=== PATIENT | male | born 1980 | race Caucasian/White ===

== ENCOUNTER 2018-03-22 17:27 | Observation (INO) ==
[2018-03-22] MEDS ORDERED: 0.9 % Sodium Chloride 1,000 ML IVC ONE ×2 (18:13→18:26)
--- NOTE | 2018-03-22 18:20 | Emergency Department Note ---
Disposition Clinical Impression: Diabetes Qualifiers: Diabetes mellitus type: type 2 Diabetes mellitus prison insulin use: without prison use Diabetes mellitus complication status: with unspecified complications Qualified Code(s): E11.8 - Type 2 diabetes mellitus with unspecified complications Disposition: Admitted As Inpatient Referrals: Doreen Vivar CNP [Primary Care Provider] - Forms: ED Satisfaction Letter General Adult HPI - General Chief complaint: ED Recheck/Abnormal Lab/Rx Stated complaint: High Glucose Time Seen by Provider: 03/22/18 17:32 - History of Present Illness HPI Narrative: This 38 years old male patient is here for generalized fatigue ,polyphagia, thirsty ,polyuria for last 1 1/2 month and symptoms are getting worse recently. He states that he has had blood sugar test done almost 1 1/2 years back and he doesn't know the exact value , but it was borderline . He admits mild chest discomfort .He denies any h/o chest pain , nausea-vomiting , palpitation, dizziness ,fever, SOB, syncope , seizure like activities. Onset (ago): day(s) Pain Scale: 0 - Related Data Previous Rx's Medication Instructions Recorded Ibuprofen [Motrin] 600 mg PO Q6HR PRN #20 tablet 11/11/15 Allergies Allergy/AdvReac Type Severity Reaction Status Date / Time cephalexin [From Keflex] Allergy Hives Verified 11/11/15 22:50 Penicillins Allergy Hives Verified 10/16/15 10:25 All systems ED: reviewed and negative except as stated. Review of Systems: As Per HPI Constitutional: Reports: as per HPI. Denies: fever, chills, weakness Eyes: Reports: as per HPI. Denies: eye pain ENT ED: Reports: as per HPI. Denies: ear pain, throat pain Cardiovascular: Reports: as per HPI. Denies: chest pain, palpitations Respiratory: Reports: as per HPI. Denies: cough, dyspnea, wheezes Gastrointestinal: Reports: as per HPI. Denies: abdominal pain, nausea, vomiting , diarrhea Genitourinary: Reports: as per HPI, frequency. Denies: urgency, dysuria, hematuria Musculoskeletal: Reports: as per HPI. Denies: back pain, neck pain Integumentary: Reports: as per HPI. Denies: rash, abrasion Neurological: Reports: as per HPI. Denies: headache, weakness, numbness Psychiatric: Reports: as per HPI. Denies: anxiety, depression, suicidal thoughts Endocrine: Reports: as per HPI. Denies: heat or cold intolerance Hematological/Lymphatic: Reports: as per HPI. Denies: easy bleeding Allergic/Immunologic: Reports: as per HPI. Denies: facial swelling Past Medical History - Past Medical History Medical history: Reports: hypertension Psychiatric history: Reports: depression - Social History Smoking Status: Former smoker Smokeless Tobacco Status: Yes Alcohol use: Reports: occasionally Drug use: Reports: none Physical Exam - General General appearance: alert, in no apparent distress - Head Head exam: atraumatic, normocephalic, normal inspection - Eye Eye exam: Present: PERRL, EOMI - ENT ENT exam: mucous membranes dry - Neck Neck exam: Present: full ROM - Chest Chest inspection: Present: symmetric chest wall rise. Absent: tenderness, rash - Respiratory Respiratory exam: Absent: respiratory distress, wheezes - Cardiovascular Cardiovascular exam: Present: regular rate, normal rhythm, +S1, +S2. Absent: bradycardia, tachycardia - Abdominal Exam Abdominal exam: Present: soft, Non-Tender, normal bowel sounds. Absent: tenderness, distention, guarding, rebound, rigidity, obturator sign, Naik's sign, Rovsing's sign - Extremities Exam Extremities exam: Present: normal inspection, normal capillary refill. Absent: pedal edema, joint swelling, calf tenderness - Back Exam Back exam: Present: muscle spasm. Absent: CVA tenderness (R), CVA tenderness (L ) - Neurological Exam Neurological exam: Present: alert, oriented X3, CN II-XII intact, normal gait - Psychiatric Psychiatric exam: Present: normal affect, normal mood. Absent: depressed, agitated - Skin Skin exam: Present: warm, normal color Course Course Narrative: The patient has polyuria, polyphagia, fatigability, so we have to r/o Diabetes. We ordered Urinalysis, CMP, EKG etc. His chest Xray is normal , EKG is normal /Normal sinus rhythm Urine analysis shows : Severe Glycosuria , no evidence of infection. His liver enzyme are slightly elevated, Blood sugar : 529 and Na + level: 131 We planned to admit him for management of diabetes and additional work up. Vital Signs Temperature 97.7 F 03/22/18 17:29 Pulse Rate 97 03/22/18 17:29 Respiratory Rate 18 03/22/18 17:29 Blood Pressure 145/93 03/22/18 17:29 O2 Sat by Pulse Oximetry 96 03/22/18 17:29 Temperature 97.7 F 03/22/18 17:29 Pulse Rate 96 03/22/18 17:52 Respiratory Rate 20 03/22/18 17:52 Blood Pressure 144/101 03/22/18 17:52 O2 Sat by Pulse Oximetry 96 03/22/18 17:52 Oxygen Delivery Oxygen Delivery Room Air Medical Decision Making - Lab Data Result diagrams: 03/22/18 18:23 03/22/18 18:23 Lab Results 03/22/18 03/22/18 03/22/18 Range/Units 18:23 18:23 18:23 WBC 11.8 H (4.3-11.1) K/mcL RBC 5.36 (4.19-5.50) M/mcL Hgb 15.7 (12.9-16.9) g/dL Hct 43.5 (37.5-50.1) % MCV 81.2 L (83.0-100.0) fL MCH 29.3 (28.0-33.3) pg MCHC 36.1 H (31.6-35.5) g/dL RDW 11.9 (11.5-14.5) % Plt Count 213 (140-400) K/mcL MPV 11.1 (9.4-12.4) fL Immature Gran % 1.0 (0-4) % Seg Neutrophils % 56.2 % Lymphocytes % 34.8 % Monocytes % 5.3 % Eosinophils % 1.9 % Basophils % 0.8 % Neutrophils # 6.6 (1.6-8.9) K/mcL Lymphocytes # 4.1 (0.6-4.6) K/mcL Monocytes # 0.6 (0.0-1.3) K/mcL Eosinophils # 0.2 (0.0-0.6) K/mcL Basophils # 0.1 (0.0-0.2) K/mcL VBG pH (7.32-7.42) pH Units VBG pCO2 (41-51) mmHg VBG pO2 (25-50) mmHg VBG HCO3 (21-27) mEq/L Sodium 131 L (136-145) mEq/L Potassium 4.0 (3.5-5.1) mEq/L Chloride 96 L (98-107) mEq/L Carbon Dioxide 19 L (23-29) mEq/L BUN 16 (6-20) mg/dL Creatinine 1.07 (0.70-1.30) mg/dL Est GFR ( Amer) > 60 (> 60) Est GFR (Non-Af Amer) > 60 (> 60) BUN/Creatinine Ratio 15 (6-26) Glucose 526 H* (70-105) mg/dL Calculated Osmolality 297 (280-300) Calcium 10.0 (8.6-10.3) mg/dL Total Bilirubin 0.5 (0.3-1.0) mg/dL AST 45 H (13-39) Units/L ALT 100 H (7-52) Units/L Alkaline Phosphatase 110 H (34-104) Units/L Troponin I (< 0.04) ng/mL Serum Total Protein 7.4 (6.4-8.9) g/dL Albumin 4.8 (3.5-5.7) g/dL Globulin 2.6 (2.4-3.5) g/dL Albumin/Globulin Ratio 1.8 (1.1-2.2) Beta-Hydroxybutyric Acd 0.26 (0.02-0.27) mmol/L Urine Color (Yellow) Urine Clarity (Clear) Urine pH (5.0-8.0) pH Units Ur Specific [place] (1.010-1.025) Urine Protein (Neg-Trace) mg/dL Urine Glucose (UA) (Normal) mg/dL Urine Ketones (Negative) mg/dL Urine Blood (Negative) Urine Nitrite (Negative) Urine Bilirubin (Negative) Urine Urobilinogen (Normal) mg/dL Ur Leukocyte Esterase (Negative) Ur Culture Indicated? (NO) 03/22/18 03/22/18 03/22/18 Range/Units 18:55 19:31 19:41 WBC (4.3-11.1) K/mcL RBC (4.19-5.50) M/mcL Hgb (12.9-16.9) g/dL Hct (37.5-50.1) % MCV (83.0-100.0) fL MCH (28.0-33.3) pg MCHC (31.6-35.5) g/dL RDW (11.5-14.5) % Plt Count (140-400) K/mcL MPV (9.4-12.4) fL Immature Gran % (0-4) % Seg Neutrophils % % Lymphocytes % % Monocytes % % Eosinophils % % Basophils % % Neutrophils # (1.6-8.9) K/mcL Lymphocytes # (0.6-4.6) K/mcL Monocytes # (0.0-1.3) K/mcL Eosinophils # (0.0-0.6) K/mcL Basophils # (0.0-0.2) K/mcL VBG pH 7.40 (7.32-7.42) pH Units VBG pCO2 36 L (41-51) mmHg VBG pO2 76 H (25-50) mmHg VBG HCO3 22 (21-27) mEq/L Sodium (136-145) mEq/L Potassium (3.5-5.1) mEq/L Chloride (98-107) mEq/L Carbon Dioxide (23-29) mEq/L BUN (6-20) mg/dL Creatinine (0.70-1.30) mg/dL Est GFR ( Amer) (> 60) Est GFR (Non-Af Amer) (> 60) BUN/Creatinine Ratio (6-26) Glucose (70-105) mg/dL Calculated Osmolality (280-300) Calcium (8.6-10.3) mg/dL Total Bilirubin (0.3-1.0) mg/dL AST (13-39) Units/L ALT (7-52) Units/L Alkaline Phosphatase (34-104) Units/L Troponin I < 0.03 (< 0.04) ng/mL Serum Total Protein (6.4-8.9) g/dL Albumin (3.5-5.7) g/dL Globulin (2.4-3.5) g/dL Albumin/Globulin Ratio (1.1-2.2) Beta-Hydroxybutyric Acd (0.02-0.27) mmol/L Urine Color Yellow (Yellow) Urine Clarity Clear (Clear) Urine pH 6.0 (5.0-8.0) pH Units Ur Specific [place] > 1.030 H (1.010-1.025) Urine Protein Negative (Neg-Trace) mg/dL Urine Glucose (UA) >=1000 H (Normal) mg/dL Urine Ketones Negative (Negative) mg/dL Urine Blood Negative (Negative) Urine Nitrite Negative (Negative) Urine Bilirubin Negative (Negative) Urine Urobilinogen Normal (Normal) mg/dL Ur Leukocyte Esterase Negative (Negative) Ur Culture Indicated? NO (NO)
[2018-03-22] MEDS ORDERED: Isovue-370 500 ML INFUS..BTL IV ONE ×2 (18:24→21:05)
[2018-03-22 18:34] LABS: Basophils # 0.1 K/mcL (0.0-0.2); Basophils % 0.8 %; Eosinophils # 0.2 K/mcL (0.0-0.6); Eosinophils % 1.9 %; Hematocrit 43.5 % (37.5-50.1); Hemoglobin 15.7 g/dL (12.9-16.9); Lymphocytes # 4.1 K/mcL (0.6-4.6); Lymphocytes % 34.8 %; Mean Corpuscular HGB Conc 36.1 g/dL (31.6-35.5); Mean Corpuscular Hemoglobin 29.3 pg (28.0-33.3); Mean Corpuscular Volume 81.2 fL (83.0-100.0); Mean Platelet Volume 11.1 fL (9.4-12.4); Monocytes # 0.6 K/mcL (0.0-1.3); Monocytes % 5.3 %; Neutrophils # 6.6 K/mcL (1.6-8.9); Platelet Count 213 K/mcL (140-400); Red Blood Count 5.36 M/mcL (4.19-5.50); Red Cell Distribution Width 11.9 % (11.5-14.5); Segmented Neutrophils % 56.2 %
--- NOTE | 2018-03-22 18:47 | Emergency Department Note ---
Disposition Clinical Impression: Diabetes Qualifiers: Diabetes mellitus type: type 2 Diabetes mellitus alf insulin use: without alf use Diabetes mellitus complication status: with unspecified complications Qualified Code(s): E11.8 - Type 2 diabetes mellitus with unspecified complications Disposition: Admitted As Inpatient Referrals: Doreen Vivar GALLERY OR MUSEUM ATTENDANT [Primary Care Provider] - Forms: ED Satisfaction Letter General Adult HPI - General Chief complaint: ED Recheck/Abnormal Lab/Rx Stated complaint: High Glucose Time Seen by Provider: 03/22/18 17:32 - History of Present Illness Pain Scale: 0 - Related Data Previous Rx's Medication Instructions Recorded Ibuprofen [Motrin] 600 mg PO Q6HR PRN #20 tablet 11/11/15 Allergies Allergy/AdvReac Type Severity Reaction Status Date / Time cephalexin [From Keflex] Allergy Hives Verified 11/11/15 22:50 Penicillins Allergy Hives Verified 10/16/15 10:25 Constitutional: Reports: as per HPI. Denies: fever, chills, weakness Eyes: Reports: as per HPI. Denies: eye pain ENT ED: Reports: as per HPI. Denies: ear pain, throat pain Cardiovascular: Reports: as per HPI. Denies: chest pain, palpitations Respiratory: Reports: as per HPI. Denies: cough, dyspnea, wheezes Gastrointestinal: Reports: as per HPI. Denies: abdominal pain, nausea, vomiting , diarrhea Genitourinary: Reports: as per HPI, frequency. Denies: urgency, dysuria, hematuria Musculoskeletal: Reports: as per HPI. Denies: back pain, neck pain Integumentary: Reports: as per HPI. Denies: rash, abrasion Neurological: Reports: as per HPI. Denies: headache, weakness, numbness Psychiatric: Reports: as per HPI. Denies: anxiety, depression, suicidal thoughts Endocrine: Reports: as per HPI. Denies: heat or cold intolerance Hematological/Lymphatic: Reports: as per HPI. Denies: easy bleeding Allergic/Immunologic: Reports: as per HPI. Denies: facial swelling Past Medical History - Past Medical History Medical history: Reports: hypertension Psychiatric history: Reports: depression - Social History Smoking Status: Former smoker Smokeless Tobacco Status: Yes Alcohol use: Reports: occasionally Drug use: Reports: none Physical Exam - General General appearance: alert, in no apparent distress Course Vital Signs Temperature 97.7 F 03/22/18 17:29 Pulse Rate 97 03/22/18 17:29 Respiratory Rate 18 03/22/18 17:29 Blood Pressure 145/93 03/22/18 17:29 O2 Sat by Pulse Oximetry 96 03/22/18 17:29 Temperature 97.7 F 03/22/18 17:29 Pulse Rate 96 03/22/18 17:52 Respiratory Rate 20 03/22/18 17:52 Blood Pressure 144/101 03/22/18 17:52 O2 Sat by Pulse Oximetry 96 03/22/18 17:52 Oxygen Delivery Oxygen Delivery Room Air Medical Decision Making - Lab Data Result diagrams: 03/22/18 18:23 Lab Results 03/22/18 Range/Units 18:23 WBC 11.8 H (4.3-11.1) K/mcL RBC 5.36 (4.19-5.50) M/mcL Hgb 15.7 (12.9-16.9) g/dL Hct 43.5 (37.5-50.1) % MCV 81.2 L (83.0-100.0) fL MCH 29.3 (28.0-33.3) pg MCHC 36.1 H (31.6-35.5) g/dL RDW 11.9 (11.5-14.5) % Plt Count 213 (140-400) K/mcL MPV 11.1 (9.4-12.4) fL Immature Gran % 1.0 (0-4) % Seg Neutrophils % 56.2 % Lymphocytes % 34.8 % Monocytes % 5.3 % Eosinophils % 1.9 % Basophils % 0.8 % Neutrophils # 6.6 (1.6-8.9) K/mcL Lymphocytes # 4.1 (0.6-4.6) K/mcL Monocytes # 0.6 (0.0-1.3) K/mcL Eosinophils # 0.2 (0.0-0.6) K/mcL Basophils # 0.1 (0.0-0.2) K/mcL Attestation Statement - Attestation Attestation: I examined this patient and my medical decision-making was reviewed with the Resident Physician. I agree with the documented findings, disposition and treatment plan as described except to the extent set forth below. 38 year old male presents to the ED with complaints of high blood glucose. Patinet states that there is a mild history of dibetes with his great grandmother. Elin states taht he was at the PCP office today because he has been feeing dry mouth and increased uriantion and about one week ago developed bluriness in his vision witohut eye pain on movment or fevers, or headache. Giovani had his blood glkucose checked and the meter read it as too high. Patient likely is a new onset diabetic and was most recently told that his A1c is 11. We will do DKA/HHS workup and then rachel admit to medicine for new onset diabetes
[2018-03-22 19:27] LABS: Bilirubin,Urine Negative (Negative); Blood,Urine Negative (Negative); Clarity,Urine Clear (Clear); Color,Urine Yellow (Yellow); Glucose,Urine (UA) >=1000 mg/dL (Normal); Ketones,Urine Negative (Negative); Leukocyte Esterase,Urine Negative (Negative); Nitrite,Urine Negative (Negative); Protein,Urine Negative (Neg-Trace); Specific Gravity,Urine > 1.030 (1.010-1.025); Urobilinogen,Urine Normal (Normal)
[2018-03-22 19:43] LABS: VBG HCO3 22 mEq/L (21-27); VBG PCO2 36 mmHg (41-51); VBG PO2 76 mmHg (25-50)
[2018-03-22 21:01] LABS: Alanine Aminotransferase 100 Units/L (7-52); Albumin 4.8 g/dL (3.5-5.7); Albumin/Globulin Ratio 1.8 (1.1-2.2); Alkaline Phosphatase 110 Units/L (34-104); Aspartate Amino Transferase 45 Units/L (13-39); BUN/Creatinine Ratio 15 (6-26); Bilirubin,Total 0.5 mg/dL (0.3-1.0); Blood Urea Nitrogen 16 mg/dL (6-20); Carbon Dioxide 19 mEq/L (23-29); Chloride 96 mEq/L (98-107); Globulin 2.6 g/dL (2.4-3.5); Glucose 526 mg/dL (70-105); Osmolality,Calculated 297 (280-300); Sodium 131 mEq/L (136-145); Total Protein 7.4 g/dL (6.4-8.9); eGFR For Non-African Americans > 60 (> 60)
[2018-03-22] MEDS ORDERED: Insulin Regular, Human 100 UNIT/ML SQ ONE (21:06)
[2018-03-22 21:52] LABS: Hepatitis B Surface Antigen Nonreactive (Nonreactive)
[2018-03-23] MEDS ORDERED: Naloxone 0.4 MG/ML INJ IVP PRN (00:55)
--- NOTE | 2018-03-23 00:55 | Internal Med History&Physical ---
Date of Encounter: 03/23/18 Time of Encounter: 01:45 Internal Medicine - H&P: HPI Chief complaint: Visual blurring Admitted From: Emergency Dept Plans for Post Hospital Care: Home History of present illness: Mr. Grubbs is a 38 year old male with history of hypertension, migraine headaches and anxiety presents to the emergency department with complaint of blurred vision of 1 week duration. He says that this happened suddenly while at work. Visual blurriness is described as near vision only, saying that he cannot see things that are far away. This is primarily affected his ability to drive, and see things that are at a distance. This blurred vision is also associated with increased thirst and urinary frequency over the past months duration. He denies any pain or headache associated with this, and he has not had any trouble with eye movements. He has not taken anything to make this any better or worse. He does have a history of migraine headaches, however he says that this is nothing like this. He initially saw his primary care about this, and they checked his blood glucose at the office at which time he registered a reading of 2 high to determine 3 different times. He then checked a hemoglobin A1c at the office which was apparently 11.3. When this was discovered, he was told to come to the hospital. Significantly, the patient does have a history of hypertension and migraine headaches. For this, he takes propanolol which she says has a benefit of treating both his hypertension and his migraine headaches. He has a family history of diabetes and his great-grandmother, however no other significant family history to his knowledge. He is , lives with his . He denies any smoking history, does not drink alcohol and has no other drug use. He does admit to poor diet and drinks a significant amount of sweetened tea. In the emergency department he had labs which demonstrated mildly depressed white carbonate at 19 and significantly elevated glucose at 526. His head CT was negative for any intracranial process. An eye exam did not demonstrate any abnormality. The patient was given 6 units of subcutaneous insulin and admitted for workup of acute newly diagnosed diabetes mellitus. Past Med Surg Social Fam HX - Past Medical History Medical history: hypertension Psychiatric history: depression - Past Surgical History Additional surgical history: grace procedure - Social History Smoking Status: Former smoker Smokeless Tobacco Status: Yes Alcohol use: occasionally Drug use: none Internal Medicine - H&P: Meds Ibuprofen [Motrin] 600 mg PO Q6HR PRN #20 tablet 11/11/15 [Rx] Amitriptyline [Elavil] 25 mg PO DAILY 03/23/18 [History] Esomeprazole Magnesium [Nexium] 40 mg PO DAILY 03/23/18 [History] Propranolol [Inderal] 40 mg PO BID 03/23/18 [History] Sertraline [Zoloft] 200 mg PO DAILY 03/23/18 [History] Temazepam [Restoril] 7.5 mg PO HS 03/23/18 [History] 3 Allergy/AdvReac Type Severity Reaction Status Date / Time cephalexin [From Keflex] Allergy Hives Verified 11/11/15 22:50 Penicillins Allergy Hives Verified 10/16/15 10:25 All Systems PM: A 10-system review of systems was performed and is negative for pertinent findings except as documented above in the HPI. Review of systems: Constitutional: Denies fevers, chills, weight loss, generalized fatigue Head/Neck: Denies JJ, neck stiffness EENT: Denies rhinorrhea, congestion, sore throat CVS: Denies chest pain, palpitations, STEIN, orthopnea, edema, PND Pulm: Denies SOB, cough, sputum, hemoptysis, wheezing GI: Denies abdominal pain, nausea, vomiting, diarrhea, constipation, melena, hematemasis : Denies dysuria, increased frequency, urgency, hematuria Endocrine: Admits to polydipsia and polyuria as well as polyphagia Heme: Denies ease of bleeding or bruising MSK: Denies joint pain, limited ROM Skin: Denies rashes, ulcers, color changes Neuro: Denies JJ, paresthesias, focal deficits, ataxia. Admits to visual changes over the past week with bilateral visual blurriness - Constitutional Vitals: Temp Pulse Resp BP Pulse Ox 97.7 F 96 20 148/87 96 03/22/18 23:17 03/22/18 23:17 03/22/18 23:17 03/22/18 23:17 03/22/18 23:17 Exam: Gen: Vitals noted. No acute distress. HEENT: Normocephalic, atraumatic Neck: Supple. No adenopathy. Cardiac: RRR, no murmur, +S1/S2 Pulmonary: CTA bilaterally, no wheezes, rales or rhonchi, equal chest expansion Abdomen: soft, nontender, no guarding Back: Nontender throughout. MSK: ROM intact, no joint swelling noted Extremities: no BLE edema, nontender calf, no cyanosis or clubbing Neuro: moves all extremities, no focal deficits. A&Ox3 Psych: Appropriate mood and behavior Internal Med - H&P Results - Labs CBC & Chem 7: 03/23/18 01:20 03/23/18 01:20 - Assessment and plan (1) Diabetes Current Visit: Yes Status: Acute Assessment and plan: Newly diagnosed diabetes mellitus type 2 Patient is symptomatic, polydipsia, polyuria, visual disturbance This is all likely secondary to acute hyperglycemia, blood glucose 526 on arrival. A1c reportedly 11.3 at primary care On presentation, patient has very minimal electrolyte disturbances with Bicarb 19 CT head negative for intracranial process at this time Received 6U Lispro in the ED, 2L NS which dropped BG to 125 We will start the patient on ACHS Accuchecks and Low dose SSI Check HgA1C, Repeat BMP and Lipids Qualifiers: Diabetes mellitus type: type 2 Diabetes mellitus fci insulin use: without family and marriage counsellor use Diabetes mellitus complication status: with ophthalmic complications Diabetes mellitus complication detail: with other ophthalmic complication Qualified Code(s): E11.39 - Type 2 diabetes mellitus with other diabetic ophthalmic complication (2) Visual disturbance Current Visit: Yes Status: Acute Assessment and plan: B/L visual disturbance, suspected secondary to Acute hyperglycemia in new DM2 Head CT is Negative, neuro exam is otherwise non-focal We will treat DM, monitor neuro status (3) Hypertension Current Visit: Yes Status: Chronic Assessment and plan: Hypertension, in moderate control on home meds We will continue propanolol Start losartan 25mg for BP and renal protection, titrate up Qualifiers: Hypertension type: essential hypertension Qualified Code(s): I10 - Essential (primary) hypertension (4) History of migraine headaches Current Visit: Yes Status: Acute Assessment and plan: Continue propanolol (5) Hyperlipidemia Current Visit: Yes Status: Acute Assessment and plan: Patient will be treated with SQ Insulin, lifestyle changes recommended Qualifiers: Hyperlipidemia type: mixed hyperlipidemia Qualified Code(s): E78.2 - Mixed hyperlipidemia (6) Transaminitis Current Visit: Yes Status: Acute Assessment and plan: Hepatic steatosis noted on CTA of the abdomen/pelvis (7) DVT prophylaxis Current Visit: Yes Status: Acute Assessment and plan: SQ Heparin - Time Spent With Patient Total time spent is greater than 50% in coordination of care (as documented) at patient's floor/unit and/or counseling patient:
[2018-03-23] MEDS ORDERED: Dextrose Gel 15 GM/37.5 ML TUBE PO PRN ×2 (00:57)
[2018-03-23] MEDS ORDERED: D5% in Water 1,000 ML IVC PRN (00:57)
[2018-03-23] MEDS ORDERED: *HR* Dextrose 50 % in Water (Syg) 50 ML SYRINGE IVP PRN (00:57)
[2018-03-23] MEDS ORDERED: Ringers Solution, Lactated 1,000 ML IVC SCH (01:00)
[2018-03-23 01:35] LABS: Basophils # 0.1 K/mcL (0.0-0.2); Basophils % 0.9 %; Eosinophils # 0.4 K/mcL (0.0-0.6); Eosinophils % 3.4 %; Hematocrit 39.8 % (37.5-50.1); Hemoglobin 14.3 g/dL (12.9-16.9); Immature Granulocytes % 1.3 % (0-4); Lymphocytes # 4.6 K/mcL (0.6-4.6); Lymphocytes % 42.9 %; Mean Corpuscular HGB Conc 35.9 g/dL (31.6-35.5); Mean Corpuscular Hemoglobin 29.4 pg (28.0-33.3); Mean Corpuscular Volume 81.7 fL (83.0-100.0); Mean Platelet Volume 10.6 fL (9.4-12.4); Monocytes # 0.6 K/mcL (0.0-1.3); Monocytes % 5.8 %; Neutrophils # 4.9 K/mcL (1.6-8.9); Platelet Count 186 K/mcL (140-400); Red Blood Count 4.87 M/mcL (4.19-5.50); Red Cell Distribution Width 11.9 % (11.5-14.5); Segmented Neutrophils % 45.7 %
[2018-03-23 01:53] LABS: Hepatitis A Antibody IgM Nonreactive (Nonreactive); Hepatitis B Core IgM Nonreactive (Nonreactive); Hepatitis C Virus Antibody Nonreactive (Nonreactive)
[2018-03-23 02:04] LABS: Albumin 4.2 g/dL (3.5-5.7); Albumin/Globulin Ratio 1.8 (1.1-2.2); Bilirubin,Direct 0.1 mg/dL (0.0-0.2); Bilirubin,Indirect 0.4 mg/dL (0.0-1.2); Bilirubin,Total 0.5 mg/dL (0.3-1.0); Globulin 2.3 g/dL (2.4-3.5); Total Protein 6.5 g/dL (6.4-8.9)
[2018-03-23 02:05] LABS: BUN/Creatinine Ratio 15 (6-26); Blood Urea Nitrogen 14 mg/dL (6-20); Calcium 9.1 mg/dL (8.6-10.3); Carbon Dioxide 24 mEq/L (23-29); Chloride 102 mEq/L (98-107); Chol/HDL Ratio 11.3 (0-4.9); Cholesterol 260 mg/dL (< 200); Glucose 171 mg/dL (70-105); HDL Cholesterol 23 mg/dL (40-59); Magnesium 1.9 mg/dL (1.6-2.6); Osmolality,Calculated 291 (280-300); Phosphorous 4.1 mg/dL (2.7-4.5); Potassium 3.3 mEq/L (3.5-5.1); Sodium 138 mEq/L (136-145); Triglycerides 917 mg/dL (< 150); eGFR For Non-African Americans > 60 (> 60)
[2018-03-23] MEDS ORDERED: Acetaminophen 325 MG TABLET PO ONE (02:49)
[2018-03-23] MEDS ORDERED: Ibuprofen 600 MG TABLET PO PRN (03:17)
[2018-03-23] MEDS: *HR* Heparin 5,000 UNIT/ML VIAL SQ SCH ×2 (05:15→14:11)
[2018-03-23] MEDS: Insulin LISPRO 300 UNITS/3 ML VIAL SQ SCH ×2 (08:10→12:07)
[2018-03-23 08:23] LABS: Estimated Average Glucose 275 mg/dl; Hemoglobin A1C 11.2 %
--- NOTE | 2018-03-23 13:05 | Discharge Summary ---
- NOTES TO OUTPATIENT PROVIDER Notes to Outpatient Provider: - Repeat LFT and lipid panel. Unsure if truly hypercholesterolemia. - Will need formal diabetic education. Not available in hospital. - Home with one week Lipitor and Niacin. Re-evaluate if needs these medications long-term based on LFT and lipid profile. 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 Diabetes mellitus complication status: with ophthalmic complications Diabetes mellitus complication detail: with other ophthalmic complication Qualified Code(s): 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 Grubbs is a 38 year old male with history of hypertension, migraine headaches and anxiety presents to the emergency department with complaint of blurred vision of 1 week duration. He says that this happened suddenly while at work. Visual blurriness is described as near vision only, saying that he cannot see things that are far away. This is primarily affected his ability to drive, and see things that are at a distance. This blurred vision is also associated with increased thirst and urinary frequency over the past months duration. He denies any pain or headache associated with this, and he has not had any trouble with eye movements. He has not taken anything to make this any better or worse. He does have a history of migraine headaches, however he says that this is nothing like this. He initially saw his primary care about this, and they checked his blood glucose at the office at which time he registered a reading of 2 high to determine 3 different times. He then checked a hemoglobin A1c at the office which was apparently 11.3. When this was discovered, he was told to come to the hospital. Significantly, the patient does have a history of hypertension and migraine headaches. For this, he takes propanolol which she says has a benefit of treating both his hypertension and his migraine headaches. He has a family history of diabetes and his great-grandmother, however no other significant family history to his knowledge. He is , lives with his . He denies any smoking history, does not drink alcohol and has no other drug use. He does admit to poor diet and drinks a significant amount of sweetened tea. In the emergency department he had labs which demonstrated mildly depressed white carbonate at 19 and significantly elevated glucose at 526. His head CT was negative for any intracranial process. An eye exam did not demonstrate any abnormality. The patient was given 6 units of subcutaneous insulin and admitted for workup of acute newly diagnosed diabetes mellitus. He was placed in hospital for further treatment and observation. He was given 6 units of subcutaneous insulin and blood glucose did improve. He had LFTs checked that showed AST 45, ALT 100, and ALP 110. Viral hepatitis screen was negative. Repeat LFTs showed AST 38, ALT 85, ALP 95. Triglycerides were elevated at 917, LDL was too numerous for lab. A direct LDL level returned however at 91. This may have been lab error from hyperglycemia. Patient stable from hyperglycemia standpoint. He will be discharged with Insulin and diabetic supplies. He will be discharged with 7 days Lipitor and Niacin. Will need re evaluation if cholesterol levels are significantly elevated and if he needs to remain on these medications. He was discharged home in stable condition. - Time Spent with Patient Total time spent providing and/or coordinating discharge services: - Discharge Medications Home Medications: Amitriptyline [Elavil] 25 mg PO DAILY 03/23/18 [History] Esomeprazole Magnesium [Nexium] 40 mg PO DAILY 03/23/18 [History] Propranolol [Inderal] 40 mg PO BID 03/23/18 [History] Sertraline [Zoloft] 200 mg PO DAILY 03/23/18 [History] Temazepam [Restoril] 7.5 mg PO HS 03/23/18 [History] Allergies/Adverse Reactions: 3 Allergy/AdvReac Type Severity Reaction Status Date / Time cephalexin [From Keflex] Allergy Hives Verified 11/11/15 22:50 Penicillins Allergy Hives Verified 10/16/15 10:25 Date of admission: 03/22/18 22:12 Primary care physician: Doreen Vivar CNP Discharging clinician: Flores Macedo - Constitutional Vitals: Temp Pulse Resp BP Pulse Ox 97.7 F 71 16 112/64 97 03/23/18 07:36 03/23/18 07:36 03/23/18 07:36 03/23/18 07:36 03/23/18 07:36 Exam: . - Head Head exam: Present: atraumatic, normocephalic - Eye Eye exam: Present: PERRL, conjuntiva pink, sclera anicteric Pupils: Present: PERRL - Neck Neck exam general surgery: Present: supple, trachea midline. Absent: lymphadenopathy - Respiratory Respiratory exam: Present: CTAB. Absent: accessory muscle use, rales, rhonchi, wheezes - Cardiovascular Cardiovascular exam: Present: RRR, +S1, +S2. Absent: diastolic murmur, gallop, rubs, systolic murmur - GI/Abdominal GI/Abdominal exam: Present: normal bowel sounds, soft, no peritoneal signs. Absent: distended, tenderness - Extremities Exam Extremities exam: Present: warm, radial pulses palpable and symmetrical. Absent : calf tenderness, cyanotic, pedal edema - Neurological Exam Neurological exam: Present: CN II-XII intact, oriented X3, no focal deficits. Absent: pronater drift, facial droop, speech deficit - Skin Skin exam: Present: dry, intact - Patient Status Disposition: Home, Self-Care Condition: Good Functional capacity at discharge: independent ambulation Overall status at discharge: patient is progressing back to baseline - Discharge Instructions Instructions: Diabetes Mellitus Type 2 in Adults (DC), Hyperlipidemia (DC) Follow Up With: Doreen Vivar CNP [Primary Care Provider] - 03/30/18 10:00 am Additional Instructions: Check your blood sugars twice per day and make a log. - Diet and Activity Activity: return to work once cleared by your PCP/specialist Diet: diabetic diet, low fat, low cholesterol, low salt diet
[2018-03-23 15:13] VITALS: BP 116/76
[2018-03-23] MEDS ORDERED: Niacin (24 HR) 500 MG TAB.ER.24H PO SCH (21:00)
[2018-03-23] MEDS ORDERED: Insulin LISPRO 300 UNITS/3 ML VIAL SQ SCH (21:00)
--- NOTE | 2018-03-24 14:00 | Electrocardiograph Report ---
[place] [id number] Test Date: 2018-03-22 Pat Name: Len Grubbs Department: EXAM[facility]3 Room: 2NE21 Gender: M Capacity Management Specialist: : [id number] Requested By: Cady Good Order Number: [id number] Reading MD: Suzanne Green Measurements Intervals [place] Rate: 77 P: 51 LA: 169 QRS: 32 QRSD: 96 T: 18 QT: 380 QTc: 430 Interpretive Statements Sinus rhythm Borderline ST wave abnormalities Electronically Signed On 03-24-2018 13:58:37 EDT by Suzanne Green
== END 2018-03-23 15:21 | disposition home or self-care (01) ==
LOC: 2NENU 17:27 → EMEROOARM 17:27 → 2NENU 23:20
PROVIDERS: ADMIT Pediatrics; ATTEND Pediatrics